=== PATIENT | male | born 1990 | race African-American/Black ===

== ENCOUNTER 2020-08-27 14:08 | Emergency (ER) | payer OTHER ==
[2020-08-27 14:32] VITALS: BP 129/78; PULSE 89; TEMP 98.7; BMI 35.6
[2020-08-27] MEDS ORDERED: IBUPROFEN 600 MG TABLET (FP) PO ONE ×2 (15:11→15:12)
== END 2020-08-27 16:59 | disposition home or self-care (01) ==
LOC: JERFT 14:08
DX: M25.462 Effusion, left knee (principal)
CPT/HCPCS: 73562-TC-LT-FY; 99283-25

== ENCOUNTER 2022-07-12 04:39 | Day surgery (SDC) | payer OTHER ==
[2022-07-11 13:02] VITALS: BMI 32.3
[2022-07-12] MEDS ORDERED: FENTANYL CITRATE/PF 50 MCG/ML VIAL ONE (10:30)
[2022-07-12 11:04] VITALS: TEMP 97.3
[2022-07-12 11:32] VITALS: PULSE 60
[2022-07-12 12:09] VITALS: BP 135/80; RESP 20
== END 2022-07-12 11:37 | disposition home or self-care (01) ==
LOC: JASU-ENDO 04:39
PROVIDERS: ATTEND Internal Medicine Gastroenterology
PROC: 0DB78ZX Excision of Stomach, Pylorus, Via Natural or Artificial Opening Endoscopic, Diagnostic (ICD-10-PCS; 2022-07-12)
PROC: 0DB68ZX Excision of Stomach, Via Natural or Artificial Opening Endoscopic, Diagnostic (ICD-10-PCS; principal; 2022-07-12 10:15)
DX: K29.50 Unspecified chronic gastritis without bleeding (principal)
CPT/HCPCS: 88305-TC; 88342-TC

== ENCOUNTER 2023-04-05 08:58 | Emergency (ER) | payer OTHER ==
[2023-04-05 09:05] VITALS: BP 133/82; PULSE 90; RESP 18; TEMP 97.6; BMI 29.0
== END 2023-04-05 11:51 | disposition home or self-care (01) ==
LOC: JERFT 08:58
PROC: 2W3CX1Z Immobilization of Right Lower Arm using Splint (ICD-10-PCS; principal; 2023-04-05)
DX: S62.92XA Unspecified fracture of left hand, initial encounter for closed fracture (principal); Y04.0XXA Assault by unarmed brawl or fight, initial encounter
CPT/HCPCS: 73130-TC-LT-FY; 99283-25

== ENCOUNTER 2024-04-13 10:30 | Emergency (ER) | payer OTHER ==
[2024-04-13 10:38] VITALS: BP 141/80; PULSE 69; RESP 20; TEMP 98.8; BMI 33.0
[2024-04-13] MEDS ORDERED: KETOROLAC TROMETHAMINE 30 MG/1 ML VIAL ONE (10:53)
[2024-04-13] MEDS: KETOROLAC TROMETHAMINE 30 MG/1 ML VIAL IM ONE (10:57)
== END 2024-04-13 14:10 | disposition home or self-care (01) ==
LOC: JERFT 10:30
PROC: 3E0133Z Introduction of Anti-inflammatory into Subcutaneous Tissue, Percutaneous Approach (ICD-10-PCS; principal; 2024-04-13)
DX: S52.502A Unspecified fracture of the lower end of left radius, initial encounter for closed fracture (principal); Y04.0XXA Assault by unarmed brawl or fight, initial encounter
CPT/HCPCS: 73090-TC-RT-FY; 73110-TC-RT-FY; 73130-TC-RT-FY; 99284-25

== ENCOUNTER 2024-04-29 06:07 | Day surgery (SDC) | payer OTHER ==
[2024-04-24 16:08] VITALS: BMI 31.6
[2024-04-29] MEDS ORDERED: PROPOFOL 20 ML ONE (07:13)
[2024-04-29] MEDS ORDERED: MIDAZOLAM HCL 2 MG/2 ML SINGLE DOSE VIAL ONE (07:13)
[2024-04-29] MEDS ORDERED: ROPIVACAINE HCL/PF 100 MG/20 ML VIAL ONE (07:21)
[2024-04-29] MEDS ORDERED: BUPIVACAINE HCL/PF 0.5% (5MG/ML) 10 ML VIAL ONE (07:46)
[2024-04-29] MEDS ORDERED: BUPIVACAINE HCL/PF 0.25% (2.5MG/ML) 10 ML VIAL ONE (07:46)
[2024-04-29] MEDS ORDERED: ONDANSETRON 4 MG/2 ML VIAL ONE (07:55)
[2024-04-29] MEDS ORDERED: DEXAMETHASONE SOD PHOSPHATE 4 MG/1 ML VIAL ONE (07:55)
[2024-04-29] MEDS ORDERED: ceFAZolin SODIUM 1 GM VIAL ONE (07:55)
[2024-04-29] MEDS ORDERED: ONDANSETRON 4 MG/2 ML VIAL IVPUSH PRN (10:18)
[2024-04-29] MEDS ORDERED: oxyCODONE HCL 5 MG TABLET PO PRN (10:18)
[2024-04-29] MEDS ORDERED: LACTATED RINGERS SOLUTION 1,000 ML IV SCH (10:30)
[2024-04-29 12:10] VITALS: BP 126/87; PULSE 70; RESP 16; TEMP 96.8
== END 2024-04-29 11:45 | disposition home or self-care (01) ==
LOC: FASU 06:07
PROVIDERS: ATTEND Orthopaedic Surgery Sports Medicine
PROC: 0PSH04Z Reposition Right Radius with Internal Fixation Device, Open Approach (ICD-10-PCS; principal; 2024-04-29 08:09)
DX: S52.571A Other intraarticular fracture of lower end of right radius, initial encounter for closed fracture (principal); X58.XXXA Exposure to other specified factors, initial encounter; Y92.9 Unspecified place or not applicable; Y93.9 Activity, unspecified
CPT/HCPCS: 25609; C1713; 73110-TC-RT-FY; 94760

== ENCOUNTER 2024-06-10 14:01 | Emergency (ER) | payer OTHER ==
[2024-06-10 14:07] VITALS: BP 131/88; PULSE 84; RESP 17; TEMP 98.6; BMI 30.3
== END 2024-06-10 16:49 | disposition left against medical advice (07) ==
LOC: JERFT 14:01
DX: Z53.21 Procedure and treatment not carried out due to patient leaving prior to being seen by health care provider (principal)
CPT/HCPCS: 99281-25

== ENCOUNTER 2024-06-24 10:28 | Emergency (ER) | payer OTHER ==
[2024-06-24 10:40] VITALS: BP 122/88; PULSE 75; RESP 18; TEMP 97.8
[2024-06-24 17:22] LABS: HIV INTERPRETATION NEGATIVE (NEGATIVE)
== END 2024-06-24 12:25 | disposition home or self-care (01) ==
LOC: JERFT 10:28
PROC: 2W3FX1Z Immobilization of Left Hand using Splint (ICD-10-PCS; principal; 2024-06-24)
DX: S62.393A Other fracture of third metacarpal bone, left hand, initial encounter for closed fracture (principal); S62.395A Other fracture of fourth metacarpal bone, left hand, initial encounter for closed fracture; W23.1XXA Caught, crushed, jammed, or pinched between stationary objects, initial encounter
CPT/HCPCS: 29125; 36415; 73130-TC-LT-FY; 86803; 87389; 99284-25

== ENCOUNTER 2025-02-09 09:58 | Emergency (ER) | payer OTHER ==
[2025-02-09 10:11] VITALS: BP 117/63; PULSE 70; RESP 18; TEMP 97.9; BMI 28.2
[2025-02-09 12:30] LABS: URINE APPEARANCE TURBID; URINE BILIRUBIN NEGATIVE (NEGATIVE); URINE COLOR YELLOW; URINE GLUCOSE (UA) NEGATIVE (NEGATIVE); URINE KETONE NEGATIVE (NEGATIVE); URINE LEUK ESTERASE NEGATIVE (NEGATIVE); URINE NITRITE NEGATIVE (NEGATIVE); URINE PROTEIN TRACE (NEGATIVE); URINE UROBILINOGEN 0.2 mg/dL (0.2-1.0)
== END 2025-02-09 12:33 | disposition home or self-care (01) ==
LOC: JER 09:58
DX: I86.1 Scrotal varices (principal); N50.811 Right testicular pain; N50.89 Other specified disorders of the male genital organs; X50.1XXA Overexertion from prolonged static or awkward postures, initial encounter; Y93.B9 Activity, other involving muscle strengthening exercises
CPT/HCPCS: 36415; 76870-TC; 81003; 87086; 87491; 87591; 99284-25

== ENCOUNTER 2025-05-30 09:49 | Emergency (ER) | payer OTHER ==
[2025-05-30 10:02] VITALS: BP 117/62; PULSE 82; RESP 20; TEMP 98.8; BMI 26.6
== END 2025-05-30 11:46 | disposition home or self-care (01) ==
LOC: JER 09:49 → JERFT 09:49
DX: S99.921A Unspecified injury of right foot, initial encounter (principal); R05.9 Cough, unspecified; V09.00XA Pedestrian injured in nontraffic accident involving unspecified motor vehicles, initial encounter; Y92.094 Garage of other non-institutional residence as the place of occurrence of the external cause
CPT/HCPCS: 73610-TC-RT-FY; 73630-TC-RT-FY; 99283-25